=== PATIENT | male | born 1975 | race Caucasian/White ===

== ENCOUNTER 2021-04-26 12:26 | Emergency (ER) | payer BC, MEDICAID, SELFPAY ==
[2021-04-26 12:41] VITALS: BP 137/94; PULSE 98; RESP 18; TEMP 36.6; O2SAT 98
--- NOTE | 2021-04-26 12:55 | ED.SKABFB ---
HPI - Skin/Abscess/Foreign Bdy General Chief complaint: Skin/Abscess/Foreign Body Stated complaint: stitches removal Time Seen by Provider: 04/26/21 12:46 Source: patient and RN notes reviewed Mode of arrival: ambulatory Limitations: no limitations History of Present Illness HPI narrative: Patient presents today for suture removal. He had 4 sutures placed in [facility] ER 10 days ago. He fell and cut his chin on concrete. Denies any difficulties with the laceration. He has been cleaning with peroxide and applying antibiotic ointment. MD complaint: laceration Related Data Home Medications Medication Instructions Recorded Confirmed No Home Medications 04/26/21 04/26/21 Allergies Allergy/AdvReac Type Severity Reaction Status Date / Time erythromycin base Allergy Unknown allergic Verified 02/26/17 21:20 Penicillins Allergy Unknown Verified 04/26/21 12:49 ENVIRONMENTAL Allergy Mild Uncoded 01/27/09 11:33 Review of Systems Review of Systems: CONSTITUTIONAL: Denies body aches, fever, chills, or sweats. EYES: Denies visual changes, redness, or discharge. ENT: Denies rhinorrhea, congestion, sore throat, or otalgia. CARDIOVASCULAR: Denies chest pain, palpitations, or edema. RESPIRATORY: Denies cough or dyspnea. GASTROINTESTINAL: Denies abdominal pain, nausea, vomiting, or diarrhea. GENITOURINARY: Denies dysuria or hematuria. SKIN: Denies rash, itching. + Laceration to chin, suture removal MUSCULOSKELETAL: Denies back pain, joint pain, or myalgia. NEUROLOGIC: Denies headache, numbness, tingling, or weakness. PSYCH: Denies depression or anxiety. PMFSH Comments At time of signature, I have reviewed and agree with nursing past medical, surgical, social and family history unless otherwise noted. Please see nursing chart for further information. There is no relevant family history pertinent to the presenting complaint Exam Narrative: GENERAL: Well-appearing, well-nourished, and in no acute distress. HEAD: Normocephalic, atraumatic. EYES: EOMI. No redness or drainage. Conjunctivae normal. ENT: Mucous membranes pink and moist. NECK: Normal AROM. CHEST: No respiratory distress. EXTREMITIES: Normal range of motion. No edema. SKIN: Warm, dry, no rash. Capillary refill normal. Normal skin turgor. 4 intact sutures to the chin without evidence of infection. Wound is approximately 3 cm and well-healed. NEURO: No focal deficits. Alert and oriented x3. Gait steady. PSYCH: Normal affect. No signs of depression or anxiety. Course Course Level of Care: Express Care Visit Vital Signs Vital signs: Vital Signs Temperature 97.9 F 04/26/21 12:41 Pulse Rate 98 04/26/21 12:41 Respiratory Rate 18 04/26/21 12:41 Blood Pressure 137/94 H 04/26/21 12:41 Pulse Oximetry 98 04/26/21 12:41 Temperature 97.9 F 04/26/21 12:41 Pulse Rate 98 04/26/21 12:41 Respiratory Rate 18 04/26/21 12:41 Blood Pressure 137/94 H 04/26/21 12:41 Pulse Oximetry 98 04/26/21 12:41 Reviewed. Pt has been instructed to follow up with his PCP regarding his elevated blood pressure today. Procedures Other Procedure Procedure 1: Other Procedure: 4 intact sutures were removed from patient's chin. Patient tolerated procedure well. MDM - Skin/Abscess/Foreign Bdy Differential Diagnosis Differential diagnosis: Likely other (Suture removal, abscess, cellulitis) Critical Care Time Critical Care Time Critical Care Time: No Discharge Plan Discharge Clinical Impression: Visit for suture removal Patient Disposition: Home, Self-Care Condition: Stable Instructions: Stitches Removal (ED) Additional Instructions: Your sutures were all removed. Do not shave the area until fully healed. Wash with soap and water. Do not wash with peroxide or alcohol. Your blood pressure was elevated above 120/80 today at Urgent Care. This puts you above the threshold for follow up. Please schedule a follo
== END 2021-04-26 13:02 | disposition home or self-care (01) ==
PROVIDERS: Emergency Provider Nurse Practitioner
DX: S01.81XD Laceration without foreign body of other part of head, subsequent encounter (principal); W19.XXXD Unspecified fall, subsequent encounter
CPT/HCPCS: 99211; G0463

== ENCOUNTER 2021-10-23 09:54 | Outpatient (CLI) | payer BC, SELFPAY ==
[2021-10-23 19:36] LABS: Hematocrit 42.3 % (42.0-52.0); Hemoglobin 14.4 g/dL (14.0-18.0); Mean Platelet Volume 9.8 fl (7.4-10.4); Platelet Count Result 217 k/mm3 (150-375); Red Cell Distribution Width 12.6 % (11.5-14.5); White Blood Count 6.4 K/mm3 (4.5-10.0)
[2021-10-23 19:46] LABS: Alanine Aminotransferase 20 U/L (6-50); Albumin Level 4.3 g/dL (3.5-5.1); Alkaline Phosphatase 74 U/L (38-126); Anion Gap 13 mmol/L (8-16); Aspartate Amino Transferase 32 U/L (17-59); Bilirubin,Total 0.5 mg/dL (0.2-1.3); Blood Urea Nitrogen 14 mg/dL (9-20); Calcium 9.2 mg/dL (8.4-10.2); Carbon Dioxide 29 mmol/L (22-30); Chloride 99 mmol/L (98-107); Cholesterol 206 mg/dL (0-200); Estimated Glomerular Filt Rate > 60; Glucose 100 mg/dL (65-110); HDL Direct 55 mg/dL; Potassium 4.4 mmol/L (3.4-5.0); Sodium 141 mmol/L (137-145); Triglycerides 84 mg/dL (<150)
[2021-10-23 19:58] LABS: LDL Cholesterol Direct 120 mg/dL
== END 2021-10-23 09:55 | disposition home or self-care (01) ==
LOC: ANHGOSHLAB 09:57
PROVIDERS: PCP Family Medicine; Visit Provider Nurse Practitioner
DX: Z13.6 Encounter for screening for cardiovascular disorders (principal); Z13.29 Encounter for screening for other suspected endocrine disorder; Z13.220 Encounter for screening for lipoid disorders; M10.9 Gout, unspecified
CPT/HCPCS: 36415; 80053; 80061; 84443; 84550; 85027

== ENCOUNTER 2023-08-10 08:32 | Outpatient (CLI) | payer BC, SELFPAY ==
[2023-08-10 12:54] LABS: Hematocrit 46.5 % (42.0-52.0); Hemoglobin 15.6 g/dL (14.0-18.0); Mean Corpuscular HGB Conc 33.5 g/dl (32-36); Mean Corpuscular Hemoglobin 32.4 pg (26-34); Mean Corpuscular Volume 96.5 fl (80-100); Platelet Count Result 245 k/mm3 (150-375); Red Blood Count 4.82 M/mm3 (4.6-6.20); White Blood Count 6.9 K/mm3 (4.5-10.0)
[2023-08-10 13:20] LABS: Alanine Aminotransferase 40 U/L (6-50); Albumin Level 4.3 g/dL (3.5-5.1); Alkaline Phosphatase 76 U/L (38-126); Anion Gap 9 mmol/L (4-12); Aspartate Amino Transferase 48 U/L (17-59); Bilirubin,Total 0.8 mg/dL (0.2-1.3); Blood Urea Nitrogen 14 mg/dL (9-20); Carbon Dioxide 28 mmol/L (22-30); Chloride 102 mmol/L (98-107); Cholesterol 248 mg/dL (0-200); Estimated Glomerular Filt Rate > 60; Glucose 110 mg/dL (65-110); HDL Direct 51 mg/dL; Potassium 4.2 mmol/L (3.4-5.0); Sodium 139 mmol/L (137-145); Triglycerides 324 mg/dL (<150)
[2023-08-10 13:37] LABS: LDL Cholesterol Direct 155 mg/dL
[2023-08-10 13:45] LABS: Hemoglobin A1C 5.8 % (<5.7)
[2023-08-10 13:58] LABS: Prostate Specific Antigen 1.3 ng/mL (< OR = 4.0)
== END 2023-08-10 08:33 | disposition home or self-care (01) ==
LOC: ANHGOSHLAB 08:33
PROVIDERS: PCP Family Medicine; Visit Provider Family Medicine
DX: Z12.5 Encounter for screening for malignant neoplasm of prostate (principal); E78.5 Hyperlipidemia, unspecified; I10 Essential (primary) hypertension; R73.09 Other abnormal glucose; Z79.899 Other long term (current) drug therapy
CPT/HCPCS: 36415; 80053; 80061; 83036; 84153; 84443; 85027; G0103